=== PATIENT | male | born 1930 | race Caucasian/White ===

== ENCOUNTER 2017-02-05 14:54 | Emergency (ER) | payer MEDICARE ==
[~2017-02-05] VITALS: Ht 172.7 cm; Wt 84.8 kg
[~2017-02-05 14:54] MED LIST: CALA120T PO; COUM5TAB PO; HCTZ50; LOVA1TAB47 PO; PRIN20TA2 PO; SERT-129 OR
[2017-02-05 14:56] VITALS: BP 137/69; PULSE 66; RESP 18; TEMP 97.5; O2SAT 94
[2017-02-05] MEDS ORDERED: HYDR25TA5 PO (15:17)
[2017-02-05] MEDS ORDERED: VERA120T3 PO (15:17)
[2017-02-05] MEDS ORDERED: WARF-23 PO (15:17)
[2017-02-05] MEDS ORDERED: WARF4TAB52 PO (15:17)
[2017-02-05] MEDS ORDERED: SERT-129 PO (15:17)
[2017-02-05] MEDS ORDERED: LOVA20TA PO (15:17)
[2017-02-05] MEDS ORDERED: LISI-515 PO (15:17)
--- NOTE | 2017-02-05 15:36 | PD ---
HPI Chief Complaint: Laceration/Skin Injury Time Seen by Provider: 15:00 Travel History International Travel<30 days: No Contact w/Intl Traveler<30days: No Traveled to known affect area: No History of Present Illness HPI 86-year-old male presents the emergency department with abrasions to the left knee, left dorsal hand, and skin tear to the left lateral elbow. Patient states he was working in the yard when he tripped on a sprinkler causing him to fall forward. He did not hit his head, he has no neck pain, loss of consciousness, or headache. He shouldn't is ambulatory without pain. He came in because he continues to have bleeding in the left elbow. Patient applied a pressure dressing himself which has bled through. He is up-to-date on his tetanus shot. He has no pain. He has no known drug allergies. 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") Diminished Hearing: Yes Hypertension: Yes Neurologic: Yes (2010 SLURRED SPEACH, UNRESPON X40 MIN, 911 NOT CALLED, TESTS NEXT DAY) Immunizations Current: Yes Tetanus Vaccination: < 5 Years Influenza Vaccination: Yes Past Surgical History Eye Surgery: Yes (bilateral cataract) Tonsillectomy: Yes (T&A) Other Surgery: Yes (GRAPEFRUIT SIZE GROWTH REMOVED FROM BUTT 2006) Social History Alcohol Use: Yes ("couple of beers a day") Tobacco Use: No Substance Use: No Allergies-Medications (Allergen,Severity, Reaction): Coded Allergies: No Known Allergies (Verified , 02/05/17) Reported Meds & Prescriptions Reported Meds & Active Scripts Active Reported Lisinopril 20 Mg Tab 20 Mg PO DAILY Verapamil (Verapamil HCl) 120 Mg Tab 120 Mg PO DAILY Sertraline (Sertraline HCl) 100 Mg Tab 100 Mg PO DAILY Warfarin 5 Mg Tab 5 Mg PO DAILY EXCEPT Sat Warfarin 1 Mg Tab 1 Mg PO , Hydrochlorothiazide 25 Mg Tab 25 Mg PO DAILY Lovastatin 20 Mg Tab 20 Mg PO DAILY Review of Systems Except as stated in HPI: all other systems reviewed are Neg General / Constitutional: No: Fever Eyes: No: Visual changes HENT: No: Headaches Cardiovascular: No: Chest Pain or Discomfort Respiratory: No: Shortness of Breath Gastrointestinal: No: Abdominal Pain Genitourinary: No: Dysuria Musculoskeletal: No: Pain Skin: No Rash Neurologic: No: Weakness Psychiatric: No: Depression Endocrine: No: Polydipsia Hematologic/Lymphatic: No: Easy Bruising Physical Exam Narrative GENERAL: Patient alert and oriented 3. He is in good spirits. He is in no acute distress. SKIN: Warm and dry. Normal color. Normal turgor. Patient has superficial abrasions 2 to the left dorsal hand. The largest one is 2 cm in diameter. Bleeding is controlled. Patient also has a-sized abrasion to the left anterior lateral knee without bleeding currently. Patient has a 3 cm diameter superficial skin tear/abrasion to the left lateral elbow with mild capillary bleeding noted. HEAD: Atraumatic. Normocephalic. EYES: Pupils equal and round. No scleral icterus. No injection or drainage. ENT: No nasal bleeding or discharge. Mucous membranes pink and moist. NECK: Trachea midline. No JVD. CARDIOVASCULAR: Regular rate and rhythm. RESPIRATORY: No accessory muscle use. Clear to auscultation. Breath sounds equal bilaterally. GASTROINTESTINAL: Abdomen soft, non-tender, nondistended. Hepatic and splenic margins not palpable. MUSCULOSKELETAL: Extremities without clubbing, cyanosis, or edema. No obvious deformities. Patient has full range of motion of all extremities. Normal system controller strength. No s signs of fracture dislocation in any of his extremities. NEUROLOGICAL: Awake and alert. No obvious cranial nerve deficits. Motor grossly within normal limits. Five out of 5 muscle strength in the arms and legs. Normal speech. PSYCHIATRIC: Appropriate mood and affect; insight and judgment normal. Data Data Last Documented VS Vital Signs Date Time Temp Pulse Resp B/P Pulse Ox O2 Delivery O2 Flow Rate FiO2 02/05/17 14:56 97.5 66 18 137/69 94 MDM Medical Decision Making Medical Screen Exam Complete: Yes Emergency Medical Condition: Yes Differential Diagnosis Fall from tripping. Abrasion left knee. Abrasion left dorsal hand. Abrasion left elbow. Skin tear. Narrative Course Patient is medically stable at time of exam. All dressings were cleansed and dressed by myself. No suturable lesions were noted. Dressings are to remain in place for the next several days. Recommend close follow with his primary care physician by the end of the week, or return to the emergency department for wound check if needed. Patient is up-to-date on his tetanus. Diagnosis Primary Impression: Fall from other slipping, tripping, or stumbling Additional Impressions: Skin tear of left elbow without complication Qualified Code: S51.012A - Skin tear of left elbow without complication, initial encounter Abrasions of multiple sites Referrals: Primary Care Physician Patient Instructions: Abrasion (ED), General Instructions, Skin Tear (ED) Additional Instructions: All dressings were cleansed and dressed by myself. No suturable lesions were noted. Dressings are to remain in place for the next several days. Recommend close follow with his primary care physician by the end of the week, or return to the emergency department for wound check if needed. Patient is up-to-date on his tetanus. Med/Other Pt SpecificInfo: No Meds Exist/No RX given Disposition: 01 DISCHARGE HOME Condition: Stable Balta Mccartney Feb 05, 2017 15:36
== END 2017-02-05 16:01 | disposition home or self-care (01) ==
LOC: PHEFT 14:54
DX: S80.212A Abrasion, left knee, initial encounter (principal); S60.512A Abrasion of left hand, initial encounter; S51.012A Laceration without foreign body of left elbow, initial encounter; I48.91 Unspecified atrial fibrillation; E78.00 Pure hypercholesterolemia, unspecified; W01.0XXA Fall on same level from slipping, tripping and stumbling without subsequent striking against object, initial encounter; Y93.H2 Activity, gardening and landscaping; Y92.096 Garden or yard of other non-institutional residence as the place of occurrence of the external cause; I25.10 Atherosclerotic heart disease of native coronary artery without angina pectoris; H91.90 Unspecified hearing loss, unspecified ear; I10 Essential (primary) hypertension
CPT/HCPCS: 99282